=== PATIENT | female | born 1945 | race Caucasian/White ===

== ENCOUNTER 2018-02-18 03:24 | Emergency (ER) | payer MEDICARE ==
[2018-02-18] MEDS ORDERED: ORPHENADRINE CITRATE 30 MG/ML ML ONE (03:48)
[2018-02-18] MEDS ORDERED: LORAZEPAM 2 MG/ML 1 ML VIAL ONE (03:49)
== END 2018-02-18 04:09 | disposition home or self-care (01) ==
LOC: EDH 03:24
DX: S81.032A Puncture wound without foreign body, left knee, initial encounter (principal); M62.838 Other muscle spasm; Z88.6 Allergy status to analgesic agent; W56.52XA Struck by other fish, initial encounter; Y93.89 Activity, other specified; Y92.89 Other specified places as the place of occurrence of the external cause; Y99.8 Other external cause status
CPT/HCPCS: 96372 ×2; 99284; J2060; J2360